=== PATIENT | female | born 1960 | race Caucasian/White ===

== ENCOUNTER 2024-06-14 12:01 | Inpatient (IN) | payer OTHER ==
--- OUTSIDE RECORDS SUMMARY | 2024-06-14 12:03 | XMS REPORT | Continuity of Care Document ---
Author Name Unknown Address [address] [place], [place] [id number] [facility] thconnect Address [address] [place] [address] [address] [place] [address] Care Team Providers Care Welt Butter Hand Name Role Phone Unavailable Unavailable Unavailable Problems Condition Name Condition Details Condition Category Status Onset Date Resolution Date Last Treatment Date Treating Clinician Comments Source Urgent desire to urinate Urgent Desire to Urinate Problem Active 05-08 00:00: 00 [facility] Pain of right breast Pain of Right Breast Problem Active 05-08 00:00: 00 [facility] Malignant tumor of breast Malignant Tumor of Breast Problem Active 05-08 00:00: 00 [facility] Nicotine dependence Nicotine Dependence Problem Active 05-08 00:00: 00 [facility] Essential hypertensi on Essential Hypertensi on Problem Active 05-08 00:00: 00 [facility] Menopausal flushing Menopausal Flushing Problem Active 05-08 00:00: 00 [facility] Atrophic vaginitis Atrophic Vaginitis Problem Active 05-08 00:00: 00 [facility] Osteoporos is Osteoporos is Problem Active 05-08 00:00: 00 [facility] Social History Smoking Status Start Date Stop Date Source Heavy Tobacco Smoker [facility] Medications Ordered Medication Name Filled Medication Name Start Date Stop Date Current Medication? Ordering Clinician Indication Dosage Frequency Signature (SIG) Comments Components Source lisinopril lisinopril No lisinopril [facility] Low Dose Aspirin 81 mg tablet,toya yed release Take 1 tablet every day by oral route. Low Dose Aspirin 81 mg tablet,toya yed release Take 1 tablet every day by oral route. No 1 Q1D Low Dose Aspirin 81 mg tablet,del ayed release Take 1 tablet every day by oral route. [facility] vitamin B complex vitamin B complex No vitamin B complex [facility] Vital Signs Vital Name Observation Time Observation Value Comments S ource BMI (Body Mass Index) 2024-05-08 00:00:00 25.7 kg/m2 [facility] BP Diastolic 2024-05-08 00:00:00 99 mm[Hg] [facility] Height 2024-05-08 00:00:00 63.5 [in_i] [facility] BP Systolic 2024-05-08 00:00:00 157 mm[Hg] [facility] Body Weight 2024-05-08 00:00:00 147.4 [lb_av] [facility] Procedures Procedure Date / Time Performed Performing Clinicia n Source DEXA 2024-05-08 00:00:00 [facility] Lumpect[facility] of Right Breast 2015-11-13 00:00:00 [facility] Medical Repair of Ankle 2009-11-13 00:00:00 [facility] Operation on Mandible 1987-11-13 00:00:00 [facility] Medical Encounters Start Date/Time End Date/Time Encounter Type Admission Type Attending Clinicians Care Facility Care Department Encounter ID Source 2024-05-08 00:00:00 2024-05-08 00:00:00 SUDHIR Morales: [address] [place], [facility] [address], [place] [address] , Ph. [facility] - [id number]_Nereida [facility]* [id number] [facility]
[2024-06-14 13:10] LABS: Absolute Eosinophils 0.1 K/uL (0-0.5); Absolute Lymphocytes (CBC) 2.5 K/uL (0.7-4.9); Absolute Monocytes 0.6 K/uL (0.1-1.3); Absolute Neutrophil 5.1 K/uL (1.8-8.0); Basophils % 0.6 % (0-1.3); Eosinophils % 1.8 % (0-4.4); Hematocrit 43.7 % (36.0-45.0); Hemoglobin 14.3 g/dL (12.0-15.0); Lymphocytes % 29.8 % (15.3-44.8); MCH 32.8 pg (27.0-35.0); MCHC 32.6 g/dL (32.0-36.0); MCV 100.3 fL (80-100); MPV 9.8 fL (7.6-11.3); Monocytes % 7.4 % (3.3-12.3); Neutrophils % 60.4 % (41.7-73.7); Platelets 194 thou/uL (152-406); RBC Red Blood Cell Count 4.35 M/uL (3.86-4.86); Red Cell Distribution Width 13.6 % (12.1-15.2)
[2024-06-14 13:31] LABS: Albumin 3.6 g/dL (3.4-5.0); Albumin/Globulin Ratio 1.1 (1.1-1.8); Anion Gap 6.3 mEq/L (5.0-15.0); Bilirubin Total 0.5 mg/dL (0.2-1.0); Globulin 3.4 g/dL (2.3-3.5); Magnesium 2.6 mg/dL (1.6-2.4); Potassium 4.3 mEq/L (3.5-5.1)
[2024-06-14 13:34] LABS: Troponin High Sensitivity 118.2 pg/mL (<58.9)
--- NOTE | 2024-06-14 13:43 | ER ---
Nurse's Notes [facility] Name: Shona Alvarado Age: 64 yrs Sex: Female : 1960 Arrival Date: 06/14/2024 Time: 12:01 Bed 3 Private MD: Diagnosis: Unstable angina;Subsequent non-ST elevation (NSTEMI) myocardial infarction Presentation: 06/14 12:24 Chief complaint: Patient states: Pt states she had sudden onset of non-radiating , tl4 non-reproducible chest pain this morning after eating that has now resolved after NTG x 1. Pt also c/o numbness and tingling down both arms and diaphoresis. Pt denies SOB, dizziness, nausea. Pt states she thinks she had a heart attack on 05/25 due to sxs but was not evaluated. Pt states she presented to Dr Duarte's office and was directed here. Coronavirus screen: At this time, the client does not indicate any symptoms associated with coronavirus-19. Ebola Screen: No symptoms or risks identified at this time. Initial Sepsis Screen: Does the patient meet any 2 criteria? No. Patient's initial sepsis screen is negative. Does the patient have a suspected source of infection? No. Patient's initial sepsis screen is negative. Risk Assessment: Do you want to hurt yourself or someone else? Patient reports no desire to harm self or others. Onset of symptoms was June 14, 2024 at 08:30. 12:24 Method Of Arrival: Ambulatory tl4 12:24 Acuity: MAURY 2 tl4 Triage Assessment: 12:28 General: Appears in no apparent distress. Behavior is calm, cooperative. Pain: Denies tl4 pain. EENT: No signs and/or symptoms were reported regarding the EENT system. Neuro: Level of Consciousness is awake, alert, obeys commands, Oriented to person, place, time, situation. Cardiovascular: Reports chest pain, now resolved Capillary refill < 3 seconds Patient's skin is warm and dry. Respiratory: Airway is patent Respiratory effort is even, unlabored, Respiratory pattern is regular, symmetrical. GI: No signs and/or symptoms were reported involving the gastrointestinal system. : No signs and/or symptoms were reported regarding the genitourinary system. Derm: No signs and/or symptoms reported regarding the dermatologic system. Musculoskeletal: No signs and/or symptoms reported regarding the musculoskeletal system. Historical: - Allergies: 12:27 No Known Allergies; tl4 - PMHx: 12:27 Breast cancer; Hypertensive disorder; tl4 - PSHx: 12:27 Mastectomy; tl4 - Immunization history:: Adult Immunizations unknown. - Infectious Disease History:: Denies. - Social history:: Smoking status: Patient reports the use of cigarette tobacco products, smokes one-half pack cigarettes per day. Screenin:34 [facility] ED Fall Risk Assessment (Adult) History of falling in the last 3 months, bp including since admission No falls in past 3 months (0 pts) Confusion or Disorientation No (0 pts) Intoxicated or Sedated No (0 pts) Impaired Gait No (0 pts) Mobility Assist Device Used No (0 pt) Altered Elimination No (0 pt) Score/Fall Risk Level 0 - 2 = Low Risk. Abuse screen: Denies threats or abuse. Denies injuries from another. Nutritional screening: No deficits noted. Tuberculosis screening: No symptoms or risk factors identified. Assessment: 12:30 General: Appears in no apparent distress. comfortable, Behavior is calm, cooperative, bp appropriate for age. Pain: Denies pain. 13:34 Reassessment: PT IGNACIO WITH RN PAIN MANAGEMENT. bp Vital Signs: 12:24 BP 205 / 103; Pulse 73; Resp 18; Temp 98.3(O); Pulse Ox 98% on R/A; Weight 66.68 kg; tl4 Height 5 ft. 3 in. ; Pain 0/10; 12:24 Body Mass Index 26.04 (66.68 kg, 160.02 cm) tl4 12:24 Pain Scale: Adult tl4 ED Course: 12:04 Patient arrived in ED. mr 12:08 Betsy Tate MD is Attending Physician. sd2 12:19 Simone Ambrosio, NAYLA is Primary Nurse. bp 12:27 Triage completed. tl4 12:29 Arm band placed on left wrist. tl4 12:29 Patient has correct armband on for positive identification. Placed in gown. Bed in low tl4 position. Call light in reach. Side rails up X 1. Adult w/ patient. Provided Education on: ed process, call pratt. Client placed on continuous cardiac and pulse oximetry monitoring. NIBP monitoring applied. monitor technician on. 12:56 XRAY Chest (1 view) In Process Unspecified. EDMS 13:00 Initial lab(s) drawn, by me, sent to lab. EKG done, by ED staff, reviewed by Betsy Tate MD. Inserted saline lock: 22 gauge in left forearm, using aseptic technique. Blood collected. Flushed with 10 mL NS. 13:34 No provider procedures requiring assistance completed. Patient admitted, IV remains in bp place. Patient maintains SpO2 saturation greater than 95% on room air. 13:41 Otf Rizo MD is Hospitalizing Provider. sd2 14:14 Tyshawn Boo MD is Hospitalizing Provider. la1 Administered Medications: No medications were administered Outcome: 13:34 Admitted to Supervising Film Or Videotape Editor accompanied by nurse, bp 13:34 Condition: stable 13:34 Instructed on the need for admit, 13:42 Decision to Hospitalize by Provider. sd2 13:58 Patient left the ED. bp 14:14 Patient left the ED. la1 Signatures: Dispatcher [employer] EDNV Héctor Olivia, Reg Reg Paolo Hawkins, MORTAR MIXER OPERATOR-C MORTAR MIXER OPERATOR-Cla1 Simone Ambrosio, RN RN Betsy Bowling MD MD sd2 Allan Fitch, RN RN tl4
--- NOTE | 2024-06-14 13:43 | EDPHYS ---
Physician Documentation [facility] Name: Shona Alvarado Age: 64 yrs Sex: Female : 1960 Arrival Date: 06/14/2024 Time: 12:01 Bed 3 Private MD: ED Physician Betsy Tate HPI: 06/14 12:42 This 64 yrs old Female presents to ER via Ambulatory with complaints of Chest Pain. sd2 12:42 64-year-old female presents with chief complaint of chest pain. She reports that on May 25 she believes she might of had a heart attack as she had severe chest pressure radiating to her back along with sweating, nausea and radiation to her arms. She reports it was so severe that she had to take one of her husbands nitroglycerin. Since then, she has continued to have intermittent chest pain that has required her continuing to take the nitroglycerin. She last take a dose this morning. She was seen by Dr. Patel this morning who sent her to have a heart catheterization done today due to her likely unstable angina.. Historical: - Allergies: 12:27 No Known Allergies; tl4 - PMHx: 12:27 Breast cancer; Hypertensive disorder; tl4 - PSHx: 12:27 Mastectomy; tl4 - Immunization history:: Adult Immunizations unknown. - Infectious Disease History:: Denies. - Social history:: Smoking status: Patient reports the use of cigarette tobacco products, smokes one-half pack cigarettes per day. ROS: 12:42 Constitutional: Negative for fever, chills, and weight loss, Eyes: Negative for injury, sd2 pain, redness, and discharge, Cardiovascular: Positive for chest pain. Neg for palpitations and edema. Respiratory: Negative for shortness of breath, cough, wheezing. Abdomen/GI: Negative for abdominal pain, diarrhea, vomiting. Positive for nausea. MS/Extremity: Negative for injury and deformity, Skin: Negative for injury, rash, and discoloration, Neuro: Negative for headache, positive for numbness and tingling. Exam: 12:42 Constitutional: This is a well developed, well nourished patient who is awake, alert, sd2 and in no acute distress. Head/Face: Normocephalic, atraumatic. Eyes: EOMI, normal conjunctiva bilaterally Chest/axilla: Normal chest wall appearance and motion. Nontender with no deformity. Cardiovascular: Regular rate and rhythm with a normal S1 and S2. No gallops, murmurs, or rubs. 2+ distal pulses. Respiratory: Lungs have equal breath sounds bilaterally, clear to auscultation and percussion. No rales, rhonchi or wheezes noted. No increased work of breathing, no retractions or nasal flaring. Abdomen/GI: Soft, non-tender, with normal bowel sounds. No guarding or rebound. No evidence of tenderness throughout. Skin: Warm, dry with normal turgor. Normal color with no rashes, no lesions, and no evidence of cellulitis. MS/ Extremity: Pulses equal, no cyanosis. Neurovascular intact. Full, normal range of motion. Neuro: Awake and alert, GCS 15, oriented to person, place, time, and situation. Cranial nerves II-XII grossly intact. Motor strength 5/5 in all extremities. Sensory grossly intact. Cerebellar exam normal. Normal gait. Psych: Awake, alert, with orientation to person, place and time. Behavior, mood, and affect are within normal limits. 12:42 ECG was reviewed by the Attending Physician. Sinus bradycardia, rate 56, no STEMI criteria Vital Signs: 12:24 BP 205 / 103; Pulse 73; Resp 18; Temp 98.3(O); Pulse Ox 98% on R/A; Weight 66.68 kg; tl4 Height 5 ft. 3 in. ; Pain 0/10; 12:24 Body Mass Index 26.04 (66.68 kg, 160.02 cm) tl4 12:24 Pain Scale: Adult tl4 MDM: 12:31 Patient medically screened. sd2 12:44 Differential diagnosis: acute myocardial infarction, acute pericarditis, anxiety, sd2 congestive heart failure gastritis, pneumonia, pneumothorax, pulmonary embolus, thoracic aortic disection, unstable angina, among thers. The patient was given aspirin in the Emergency Department. Data reviewed: vital signs, nurses notes, lab test result(s), EKG, radiologic studies. Care significantly affected by the following chronic conditions: Hypertension. 13:40 HEART Score: History: Highly Suspicious (2), ECG: Non specific repolarization sd2 disturbance / LBTB / PM (1), Age: > or = 65 years (2), Risk Factors: > or = 3 Risk factors for atherosclerotic disease (2), Troponin: > 1 and < 3 x normal limit (1), Total Score = 8. I considered the following discharge prescriptions or medication management in the emergency department Medications were administered in the Emergency Department. See MAR. Counseling: I had a detailed discussion with the patient and/or guardian regarding the historical points, exam findings, and any diagnostic results supporting the discharge/admit diagnosis, lab results, radiology results, the need for further work-up and treatment in the hospital. ED course: Pt taken to cath lab technologist by Dr. Patel. Admitted to hospitalist.. 06/14 12:32 Order name: CBC with Diff; Complete Time: 13:42 sd2 06/14 12:32 Order name: CMP; Complete Time: 13:42 sd2 06/14 12:32 Order name: Magnesium; Complete Time: 13:42 sd2 06/14 12:32 Order name: Troponin High Sensitivity; Complete Time: 13:42 sd2 06/14 12:32 Order name: BNP; Complete Time: 13:42 sd2 06/14 12:32 Order name: XRAY Chest (1 view) sd2 06/14 12:32 Order name: EKG - Nurse/Tech; Complete Time: 12:41 sd2 Administered Medications: No medications were administered Disposition Summary: 06/14/24 13:42 Hospitalization Ordered Notes: Hospitalization Status: Inpatient Admission sd2 [facility] sd2 Condition: Stable sd2 Problem: new sd2 Symptoms: have improved sd2 Bed/Room Type: Standard sd2 Room Assignment: sd2 Provider: Tyshawn Boo(06/14/24 14:14) la1 Diagnosis - Unstable angina sd2 - Subsequent non-ST elevation (NSTEMI) myocardial infarction sd2 Discharge Instructions: - Discharge Summary Sheet bp Forms: - SBAR form bp - Medication Reconciliation Form sd2 - Leadership Thank You Letter sd2 Signatures: Dispatcher [employer] EDPaolo Lorenz FNP-C FNP-Cla1 Betsy Tate MD MD sd2 Allan Fitch RN RN tl4 Corrections: (The following items were deleted from the chart) 12:32 12:32 Chest Single View+RAD.RAD.BRZ ordered. EDTX EDMS 14:14 13:42 Otf Rizo sd2 la1
--- NOTE | 2024-06-14 13:57 | RAD REPORT ---
EXAM DESCRIPTION: Jeremy Single View06/14/2024 12:55 pm CLINICAL HISTORY: CHEST PAIN COMPARISON: No comparisons TECHNIQUE: Portable AP view of the chest. FINDINGS: The lungs are clear. No pneumothorax or effusion. The cardiomediastinal contours are unre markable. IMPRESSION: No acute cardiopulmonary process.
[2024-06-14] MEDS: NA CHLORIDE 0.9% 500 ML ONE (14:01)
[2024-06-14] MEDS ORDERED: HEPARIN 5000 UNIT/ML 1 ML VIAL ONE (14:29)
[2024-06-14] MEDS ORDERED: LIDOCAINE 1% 20 ML MDV ONE (14:29)
[2024-06-14] MEDS ORDERED: VERAPAMIL HCL 10 MG/4 ML VIAL IV ONE (14:29)
[2024-06-14] MEDS ORDERED: ATROPINE SULF 1 MG/10 ML SYR IV ONE (14:29)
[2024-06-14] MEDS ORDERED: HEPA 1000U/500MLS 2,000 UNIT/1,000 ML BAG IV ONE (14:29)
[2024-06-14] MEDS ORDERED: HEPARIN 10,000 UNIT/10 ML VIAL IV ONE (14:30)
[2024-06-14] MEDS ORDERED: TICAGRELOR 90 MG TABLET PO ONE (14:30)
[2024-06-14] MEDS ORDERED: ASPIRIN 325 MG TAB ONE (14:30)
[2024-06-14] MEDS ORDERED: CLOPIDOGREL 75 MG TABLET ONE (14:30)
[2024-06-14] MEDS ORDERED: MIDAZOLAM HCL 2 MG/2 ML INJ ONE (14:41)
[2024-06-14] MEDS ORDERED: FENTANYL CITR 100 MCG/2 ML ONE (14:42)
[2024-06-14] MEDS ORDERED: FAMOTIDINE 20 MG TAB ONE (15:15)
[2024-06-14] MEDS ORDERED: HYDRALAZINE HCL 20 MG/ML VIAL IV PRN (15:59)
[2024-06-14] MEDS ORDERED: ONDANSETRON 4 MG/2 ML VIAL IV PRN (15:59)
--- NOTE | 2024-06-14 16:10 | P.HP ---
Certification for Inpatient Patient admitted to: Observation With expected LOS: <2 Midnights Patient will require the following post-hospital care: None Practitioner: I am a practitioner with admitting privileges, knowledge of patient current condition, hospital course, and medical plan of care. Services: Services provided to patient in accordance with Admission requirements found in Title 42 Section 412.3 of the Code of Federal Regulations Patient History Date of Service: 06/14/24 Primary Care Provider: Ema Reason for admission: Chest pain History of Present Illness: Patient is an office patient of [facility]. She has a history of htn and nicotine dependence. She was having some chest pain and was referred to Dr. Griffith. He saw her in the office today. Sent the patient to the hospital for angiogram. he found stenosis of the RCA After stenting there was a dilatation of the entire cardiac vascular system. Dr Griffith is worried about nicotine causing severe vasospasms. She is doing well post cath. Will be kept for observation , anticoagulation, and plavix Allergies No Known Allergies Allergy (Unverified 06/14/24 14:27) Review of Systems 10-point ROS is otherwise unremarkable Cardiovascular: Chest Pain Physical Examination - Vital Signs Temperature: 98.3 F Blood Pressure: 205/103 Pulse: 73 Respirations: 18 - Physical Exam General: Alert, In no apparent distress HEENT: Atraumatic, PERRLA, Mucous membr. moist/pink, EOMI, Sclerae nonicteric Neck: Supple, 2+ carotid pulse no bruit, No LAD, Without JVD or thyroid abnormality Respiratory: Clear to auscultation bilaterally, Normal air movement Cardiovascular: Regular rate/rhythm, Normal S1 S2 Gastrointestinal: Normal bowel sounds, No tenderness Musculoskeletal: No tenderness Integumentary: No rashes Neurological: Normal gait, Normal speech, Normal strength at 5/5 x4 extr, Normal tone, Normal affect Lymphatics: No axilla or inguinal lymphadenopathy - Studies Laboratory Data (last 24 hrs) 06/14/24 06/14/24 13:00 13:00 WBC 8.50 Hgb 14.3 Hct 43.7 Plt Count 194 Sodium 137 Potassium 4.3 BUN 17 Creatinine 1.31 H Glucose 95 Magnesium 2.6 H Total Bilirubin 0.5 AST 14 L ALT 19 Alkaline Phosphatase 70 Assessment and Plan - Problems (Diagnosis) (1) Coronary artery disease Current Visit: Yes Status: Acute Plan: will continue the patient on aspirin and plavix Start high dose statin. Continue lisinopril Qualifiers: Coronary Disease-Associated Artery/Lesion type: [place] artery Robinson vs. transplanted heart: [place] heart Associated angina: without angina Qualified Code(s): I25.10 - Atherosclerotic heart disease of [place] coronary artery without angina pectoris (2) Essential (primary) hypertension Current Visit: Yes Status: Chronic Plan: restart the lisinopril. Adjust as necessary (3) Nicotine dependence, unspecified, uncomplicated Current Visit: Yes Status: Acute Plan: will restart the buproprion She may have a a Buerger's disease like reaction to nicotine. Will work on her about nicotine cessation Qualifiers: Nicotine product type: cigarettes Qualified Code(s): F17.210 - Nicotine dependence, cigarettes, uncomplicated Discharge Plan: Home Plan to discharge in: 24 Hours - Advance Directives Does patient have a Living Will: No Does patient have a Durable POA for Healthcare: No - Code Status/Comfort Care Code Status Assessed: Yes Code Status: Full Code Physician Review: Patient Assessed, Agree with Above Assessment and Plan Critical Care: No Time Spent Managing Pts Care (In Minutes): 70
[2024-06-14] MEDS: ENOXAPARIN 40 MG/0.4 ML SQ SCH (17:45)
[2024-06-14 17:54] VITALS: BMI 26.0
[2024-06-14 19:53] VITALS: O2SAT 97
[2024-06-14] MEDS: ATORVASTATIN 80 MG TAB PO SCH (20:31)
--- NOTE | 2024-06-14 23:38 | OP ---
Date of Procedure: 06/14/2024 Surgeon: SILVIA [facility] Procedure Performed: 1.Selective coronary angiogram. 2.Left heart catheterization. 3.PCI of severe mid RCA and proximal RCA stenosis culprit for IL. I used 2.5 x 24 mm drug-eluting s tent to cover the mid segment and then 2.75 x 12 mm Synergy drug-eluting stent to cover the proximal segment overlap with the first one and then I used 3.0 x 20 mm NC balloon to post dilate the whole st ent except the edge. Indication: [id number] myocardial infarction. Access: Right common femoral artery 6-Tunisian, closed with 6-Tunisian Angio-Seal. Complications: None. Bleeding: Less than 50 mL. Anesthesia: Total sedation time was 1 hour. Description Of Procedure: After risks, benefits, and alternatives were explained, the patient agreed to the procedure and signed informed consent. The patient was brought into the cardiac catheterizat ion laboratory, prepped and draped in the usual sterile fashion. Then, I accessed the right common f emoral artery using micropuncture kit, ultrasound guidance, and fluoroscopy, placed 6-Tunisian [place] sheath. We took a 6-Tunisian JL4 catheter into the aortic root, engaged left main, took standard view s. Then I exchanged for a 6-Tunisian JR4 catheter and engaged the RCA, took standard views, and then t he catheter was pushed over the wire into the LV, measured the LVEDP, and pullback did not record any gradient. Then, we gave systemic heparin to assure ACT level above 250 and then took a 6-Tunisian JR4 guide with side holes, engaged the RCA and sent the run-through wire into the RCA vessel distally an d then using a 2.5 balloon, the lesions will be pre-dilated nicely and then I placed a 2.[address] across the mid segment and a 2.75 x 12 mm Synergy drug-eluting stent across the proximal segment overlap with the first one, and then I used a 3.0 x 20 mm NC balloon to post dilate the whole stent e xcept that edge. During this time, systemic heparin was given to assure ACT level above 250 and she was given also 600 mg Plavix and the patient was already on aspirin. Final angiogram after removing the wire was satisfactory and then removed the guide and the sheath. A 6-Tunisian Angio-Seal was used for closure. Good hemostasis. Findings: 1.Left main: Diffuse 20% to 30% stenosis. 2.LAD with luminal irregularities. The diagonal branches with luminal irregularities. 3.Left circumflex: It is a large vessel, codominant after the OM branch. There is focal 60% to 70% stenosis. 4.RCA: It is large vessel, codominant, under filled after the stent. It is a 3 mm vessel, status p ost with severe mid segment 99%, and the proximal segment is 80%, status post successful PCI as above . Conclusion: 1.Critical mid RCA stenosis and severe proximal RCA stenosis, status post successful PCI as above. 2.Severe left circumflex stenosis, which we will plan to stage at a later time. 3.Elevated LVEDP and there is also a mild left main disease. Plan: 1.Aspirin and Plavix. High-dose statin. 2.Plan to do a stress test on her in 4-6 weeks and if the area of this left circumflex is abnormal, then we will bring her back for a staged PCI. /RICKY Voice ID: [id number] Report ID: [id number]
[2024-06-15 06:14] LABS: Absolute Basophils 0.1 K/uL (0-0.5); Absolute Eosinophils 0.2 K/uL (0-0.5); Absolute Lymphocytes (CBC) 2.1 K/uL (0.7-4.9); Absolute Monocytes 0.8 K/uL (0.1-1.3); Absolute Neutrophil 4.8 K/uL (1.8-8.0); Basophils % 0.8 % (0-1.3); Eosinophils % 2.8 % (0-4.4); Hematocrit 39.6 % (36.0-45.0); Hemoglobin 13.1 g/dL (12.0-15.0); Lymphocytes % 26.4 % (15.3-44.8); MCH 33.1 pg (27.0-35.0); MCHC 33.2 g/dL (32.0-36.0); MCV 99.7 fL (80-100); MPV 9.3 fL (7.6-11.3); Monocytes % 9.5 % (3.3-12.3); Neutrophils % 60.5 % (41.7-73.7); Nucleated Red Blood Cells % 0.2 % (0-0); Platelets 194 thou/uL (152-406); RBC Red Blood Cell Count 3.97 M/uL (3.86-4.86); Red Cell Distribution Width 13.4 % (12.1-15.2)
[2024-06-15] MEDS: PANTOPRAZOLE 40MG TABLET PO SCH (06:24)
[2024-06-15 06:40] LABS: Albumin 3.2 g/dL (3.4-5.0); Anion Gap 6.3 mEq/L (5.0-15.0); Bilirubin Total 0.4 mg/dL (0.2-1.0); Globulin 3.2 g/dL (2.3-3.5); Magnesium 2.7 mg/dL (1.6-2.4); Potassium 4.3 mEq/L (3.5-5.1); Protein, Total 6.4 g/dL (6.4-8.2); Thyroid Stimulating Hormone 3.37 uIU/mL (0.358-3.740)
[2024-06-15] MEDS: lisinopriL 10 MG TAB PO SCH (08:49)
[2024-06-15] MEDS: BUPROPION HCL XL 150 MG TAB PO SCH (08:49)
[2024-06-15] MEDS: CLOPIDOGREL 75 MG TABLET PO SCH (08:50)
[2024-06-15] MEDS: ASPIRIN EC 81 MG TAB PO SCH (08:50)
--- NOTE | 2024-06-15 12:44 | P.DS ---
Admission Date: 06/14/24 Discharge Date: 06/15/24 Primary Care Provider: Ema Disposition: ROUTINE DISCHARGE Discharge Condition: GOOD Reason for Admission: Chest pain - Problems (1) Coronary artery disease Current Visit: Yes Status: Acute Qualifiers: Coronary Disease-Associated Artery/Lesion type: [place] artery [place] vs. transplanted heart: [place] heart Associated angina: without angina Qualified Code(s): I25.10 - Atherosclerotic heart disease of [place] coronary artery without angina pectoris (2) Essential (primary) hypertension Current Visit: Yes Status: Chronic (3) Nicotine dependence, unspecified, uncomplicated Current Visit: Yes Status: Acute Qualifiers: Nicotine product type: cigarettes Qualified Code(s): F17.210 - Nicotine dependence, cigarettes, uncomplicated Brief History of Present Illness: Patient is an office patient of [employer]. She has a history of htn and nicotine dependence. She was having some chest pain and was referred to Dr. Griffith. He saw her in the office today. Sent the patient to the hospital for angiogram. he found stenosis of the RCA After stenting there was a dilatation of the entire cardiac vascular system. Dr Griffith is worried about nicotine causing severe vasospasms. She is doing well post cath. Will be kept for observation , anticoagulation, and plavix Hospital Course: Patient has no chest pain. No pain at the angiogram site. She is doing well this morning. Will discharge and have her follow up with Myself and Dr. Griffith. Thank you for allowing me to take part in her care. Vital Signs/Physical Exam: Temp Pulse Resp BP Pulse Ox 97.9 F 62 16 146/75 H 99 06/15/24 08:00 06/15/24 08:49 06/15/24 08:00 06/15/24 08:49 06/15/24 08:00 General: Alert, In no apparent distress HEENT: Atraumatic, PERRLA, EOMI Neck: Supple, JVD not distended Respiratory: Clear to auscultation bilaterally, Normal air movement Cardiovascular: Regular rate/rhythm, Normal S1 S2 Gastrointestinal: Normal bowel sounds, No tenderness Musculoskeletal: No tenderness Integumentary: No rashes Neurological: Normal speech, Normal tone, Normal affect Lymphatics: No axilla or inguinal lymphadenopathy Laboratory Data at Discharge: WBC 7.90 thou/uL (4.3-10.9) 06/15/24 05:48 Hgb 13.1 g/dL (12.0-15.0) D 06/15/24 05:48 Hct 39.6 % (36.0-45.0) 06/15/24 05:48 Plt Count 194 thou/uL (152-406) 06/15/24 05:48 Sodium 137 mEq/L (136-145) 06/15/24 05:48 Potassium 4.3 mEq/L (3.5-5.1) 06/15/24 05:48 BUN 20 mg/dL (7-18) H 06/15/24 05:48 Creatinine 1.16 mg/dL (0.55-1.02) H 06/15/24 05:48 Glucose 96 mg/dL (74-106) 06/15/24 05:48 Magnesium 2.7 mg/dL (1.6-2.4) H 06/15/24 05:48 Total Bilirubin 0.4 mg/dL (0.2-1.0) 06/15/24 05:48 AST 12 U/L (15-37) L 06/15/24 05:48 ALT 16 U/L (13-56) 06/15/24 05:48 Alkaline Phosphatase 71 U/L (45-117) 06/15/24 05:48 Triglycerides 104 mg/dL (<150) 06/15/24 05:48 Cholesterol 190 mg/dL (<200) 06/15/24 05:48 HDL Cholesterol 52 mg/dL (40-60) 06/15/24 05:48 Cholesterol/HDL Ratio 3.65 06/15/24 05:48 Home Medications: Lisinopril [Zestril] 20 mg PO DAILY 06/14/24 buPROPion HCL [Bupropion HCl] 75 mg PO DAILY 06/14/24 Aspirin [Adult Aspirin Regimen] 81 mg PO DAILY 90 Days #90 tab 06/15/24 Atorvastatin Calcium [Lipitor] 80 mg PO BEDTIME 90 Days #90 tab 06/15/24 Bupropion *Xl* [Wellbutrin XL*] 150 mg PO DAILY 90 Days #90 tab 06/15/24 Clopidogrel Bisulfate [Plavix*] 75 mg PO DAILY 90 Days #90 tab 06/15/24 lisinopriL [Prinivil*] 10 mg PO DAILY tab 06/15/24 New Medications: Aspirin [Adult Aspirin Regimen] 81 mg PO DAILY 90 Days #90 tab Atorvastatin Calcium [Lipitor] 80 mg PO BEDTIME 90 Days #90 tab Clopidogrel Bisulfate [Plavix*] 75 mg PO DAILY 90 Days #90 tab Bupropion *Xl* [Wellbutrin XL*] 150 mg PO DAILY 90 Days #90 tab Diet: AHA Activity: Ad perfecto Followup: Tyshawn Boo MD [Primary Care Provider] - 1 Week Dakotah Patel MD [ACTIVE - CAN ADMIT] - 1-2 Weeks Time spent managing pt's care (in minutes): 30
[2024-06-15 16:02] VITALS: BP 158/67; TEMP 97.8
--- NOTE | 2024-06-17 17:08 | EKG ---
Test Date: 2024-06-14 Test Time: 12:34:45 [employer]: BP MEASUREMENT RESULTS: Intervals: Rate: 56 MA: 136 QRSD: 94 QT: 456 QTc: 440 [place]: P: 55 MA: 136 QRS: 47 T: 43 INTERPRETIVE STATEMENTS: Sinus bradycardia Otherwise normal ECG No previous ECG available for comparison Electronically Signed On 06-17-24 16:59:43 CDT by Dakotah Patel
== END 2024-06-15 13:57 | disposition home or self-care (01) | DRG 322 ==
LOC: ER 12:01 → ERHOLD 15:55 → 4TH 16:19
PROVIDERS: ADMIT Internal Medicine; ATTEND Internal Medicine
PROC: 027035Z Dilation of Coronary Artery, One Artery with Two Drug-eluting Intraluminal Devices, Percutaneous Approach (ICD-10-PCS; principal; 2024-06-14)
PROC: 4A023N7 Measurement of Cardiac Sampling and Pressure, Left Heart, Percutaneous Approach (ICD-10-PCS; 2024-06-14)
PROC: B2111ZZ Fluoroscopy of Multiple Coronary Arteries using Low Osmolar Contrast (ICD-10-PCS; 2024-06-14)
DX: I21.4 Non-ST elevation (NSTEMI) myocardial infarction (principal); I10 Essential (primary) hypertension; I25.10 Atherosclerotic heart disease of native coronary artery without angina pectoris; F17.210 Nicotine dependence, cigarettes, uncomplicated; Z85.3 Personal history of malignant neoplasm of breast; Z79.82 Long term (current) use of aspirin; Z90.10 Acquired absence of unspecified breast and nipple; Z79.02 Long term (current) use of antithrombotics/antiplatelets; Z79.899 Other long term (current) drug therapy
CPT/HCPCS: 36415; 71045; 76937; 80053; 80061; 83036; 83735; 83880; 84443; 84484; 85025; 85347; 93005; 93458; 99152; 99285; C1725; C1760; C1893; C9600; G0269; J0461; J1644; J1650; J2001; J2250; J3010; J7040; Q9967